=== PATIENT | female | born 1995 | race Caucasian/White ===

== ENCOUNTER 2016-06-23 08:06 | Emergency (ER) | payer OTHER ==
[~2016-06-23] VITALS: Ht 154.9 cm; Wt 62.0 kg
[2016-06-23 08:14] VITALS: BP 109/72; PULSE 73; RESP 16; TEMP 98.7; O2SAT 97
[2016-06-23 08:29] LABS: BLOOD, URINE TRACE (NEG); GLUCOSE,URINE NEG (NEG); KETONE, URINE NEG (NEG); NITRITE,URINE NEG (NEG)
[2016-06-23 08:33] LABS: METHOD OF COLLECTION CLEAN CATCH; URINE COLOR STRAW (YELLW/STRAW)
[2016-06-23 08:34] LABS: BACTERIA, URINE FEW /hpf; COMMENT (UR) CULTURE INDICATED; CULTURE IF INDICATED CULTURE INDICATED; RBC, URINE 0-3 /hpf (0-3); SQUAMOUS EPITHELIAL CELL URINE > 8 /hpf (0-5)
[2016-06-23 08:35] LABS: COMMENT2 (UR) MUCOUS PRESENT; TRANSITIONAL EPI CELLS, URINE 0-5 /hpf
[2016-06-23] MEDS ORDERED: MACR100C2 PO (08:43)
--- NOTE | 2016-06-23 08:43 | PD ---
HPI Chief Complaint: Complaint Time Seen by Provider: 08:23 Travel History International Travel<30 days: No Contact w/Intl Traveler<30days: No Traveled to known affect area: No History of Present Illness HPI So well 21-year-old young woman who presents to the emergency department complaining of dysuria and urgency with cloudy urine ongoing for several days. She's been taking cranberry pills which haven't really seem to be helping. She is a little bit a mild pelvic cramping. No history of urinary tract infections. No fevers chills, nausea vomiting, vaginal discharge or vaginal bleeding. She has an IUD and her menstrual periods are pretty irregular. She is sexually active with one male partner. History Past Medical History Medical History: Denies Significant Hx Tetanus Vaccination: < 5 Years Influenza Vaccination: No LMP: UNKNOWN Past Surgical History Surgical History: No Previous Surgery Social History Alcohol Use: No Tobacco Use: No Allergies-Medications (Allergen,Severity, Reaction): Coded Allergies: No Known Allergies (Unverified , 06/23/16) Review of Systems Except as stated in HPI: all other systems reviewed are Neg Physical Exam Narrative GENERAL: Well-appearing 21 year-old woman, no acute distress. SKIN: Warm and dry. CARDIOVASCULAR: Regular rate and rhythm. No murmur appreciated. RESPIRATORY: No accessory muscle use. Clear to auscultation. Breath sounds equal bilaterally. GASTROINTESTINAL: Abdomen flat and soft. Minimal suprapubic tenderness. MUSCULOSKELETAL: No obvious deformities. No clubbing. No cyanosis. No edema. NEUROLOGICAL: Awake and alert. No obvious cranial nerve deficits. Motor grossly within normal limits. Normal speech. PSYCHIATRIC: Appropriate mood and affect; insight and judgment normal. Data Data Last Documented VS Vital Signs Date Time Temp Pulse Resp B/P Pulse Ox O2 Delivery O2 Flow Rate FiO2 06/23/16 08:14 98.7 73 16 109/72 97 Orders Urinalysis - C+S If Indicated (06/23/16 08:11) Ed Urine Pregnancytest Poc (06/23/16 08:11) Urine Culture (06/23/16 08:15) Labs Laboratory Tests Test 06/23/16 08:15 Urine Collection Type CLEAN CATCH Urine Color STRAW Urine Turbidity SLIGHT Urine pH 6.0 Urine Specific [place] 1.010 Urine Protein NEG mg/dL Urine Glucose (UA) NEG mg/dL Urine Ketones NEG mg/dL Urine Occult Blood TRACE Urine Nitrite NEG Urine Bilirubin NEG Urine Leukocyte Esterase MOD Urine RBC 0-3 /hpf Urine WBC 20-24 /hpf Urine WBC Clumps FEW Urine Squamous Epithelial > 8 /hpf Cells Urine Transitional Epithelial 0-5 /hpf Cells Urine Amorphous Sediment SMALL Urine Bacteria FEW /hpf Microscopic Urinalysis Comment CULTURE INDICATED Urine Collection Time 0815 [facility] Medical Decision Making Medical Screen Exam Complete: Yes Emergency Medical Condition: Yes Interpretation(s) UA: Pyuria Differential Diagnosis UTI, cervicitis, other Narrative Course Medical decision making 21 year-old woman presents emergency Department with dysuria, cloudy urine, with pyuria suggestive of UTI. Recommend treatment, follow-up culture. Diagnosis Primary Impression: Acute cystitis without hematuria Additional Instructions: Take Macrobid as prescribed. Follow up with her primary doctor in the next 2-4 days if not improving. Return to the emergency department for any worsening abdominal pain, vomiting, or any other new or worsening symptoms. Med/Other Pt SpecificInfo: Prescription(s) given Scripts Nitrofurantoin Monohydrate Macrocrystals (Macrobid)100 Mg [id number] Mg PO BID 5 Days Prov:Charlie Garber MD 06/23/16 Disposition: 01 DISCHARGE HOME Condition: Stable Charlie Garber MD Jun 23, 2016 08:43
== END 2016-06-23 08:57 | disposition home or self-care (01) ==
LOC: PHED 08:06
DX: N30.00 Acute cystitis without hematuria (principal)
CPT/HCPCS: 81001; 84703; 87086; 99283

== ENCOUNTER 2016-08-25 08:43 | Emergency (ER) | payer OTHER ==
[~2016-08-25] VITALS: Ht 154.9 cm; Wt 61.7 kg
[~2016-08-25 08:43] MED LIST: MACR100C2 PO
[2016-08-25 08:49] VITALS: BP 123/64; PULSE 79; RESP 16; TEMP 98.9; O2SAT 98
[2016-08-25] MEDS ORDERED: AMOX500C PO (09:29)
--- NOTE | 2016-08-25 09:29 | PD ---
HPI Chief Complaint: ENT Complaint Time Seen by Provider: 08:59 Travel History International Travel<30 days: No Contact w/Intl Traveler<30days: No Traveled to known affect area: No History of Present Illness HPI This 19-year-old female presents emergency department for evaluation of bilateral ear pain left greater than right. Patient states she's been swimming recently. States she has a history of recurrent ear infections she does use Q- tips to clean her ears. Patient is concerned because she is flying tomorrow. She denies any fever or any sore throat chest pain extremity pain rash and abdominal pain. Feels like her ears are soft. PFSH Past Medical History Medical History: Denies Significant Hx Diminished Hearing: No Tetanus Vaccination: Unknown ?: Not LMP: 3 WEEKS AGO Past Surgical History Tonsillectomy: Yes Social History Alcohol Use: No Tobacco Use: No Substance Use: No Allergies-Medications (Allergen,Severity, Reaction): Coded Allergies: No Known Allergies (Unverified , 08/25/16) Reported Meds & Prescriptions Reported Meds & Active Scripts Active Amoxicillin 500 Mg Cap 500 Mg PO BID 7 Days Review of Systems Except as stated in HPI: all other systems reviewed are Neg Physical Exam Narrative GENERAL: Well-nourished, well-developed patient who is in no apparent distress. SKIN: Warm and dry. HEAD: Normocephalic. EYES: No scleral icterus. No injection or drainage. ENT: Right TM is clear, left ear canal is occluded by wax, after irrigation and removal of impaction TM was partially visualized and does show some bulging without erythema. No mastoid tenderness, oropharynx is clear and moist. NECK: Supple, trachea midline. No JVD or lymphadenopathy. CARDIOVASCULAR: Regular rate and rhythm without murmurs, gallops, or rubs. RESPIRATORY: Breath sounds equal bilaterally. No accessory muscle use. GASTROINTESTINAL: Abdomen soft, non-tender, nondistended. MUSCULOSKELETAL: No cyanosis, or edema. BACK: Nontender without obvious deformity. No CVA tenderness. Data Data Last Documented VS Vital Signs Date Time Temp Pulse Resp B/P Pulse Ox O2 Delivery O2 Flow Rate FiO2 08/25/16 08:49 98.9 79 16 123/64 98 MDM Medical Decision Making Medical Screen Exam Complete: Yes Emergency Medical Condition: Yes Differential Diagnosis Cerumen impaction, otitis media, otitis externa. Narrative Course Patient roomed in the emergency department, her cerumen impaction was debrided by myself. TM which is not erythematous. Recommend taking Sudafed and amoxicillin and chewing gum on the airplane. She otherwise appears well. Discussed that there is some risk for flying for ruptured TM but she is fairly young and should be able to tolerate. She stable for discharge. Procedures Procedure Narrative RIGHT EAR CERUMEN DISIMPACTION: After discussion of the risk of TM perforation, patient was placed and supine position, using an ear curet the best majority of the impaction was removed, patient was irrigated with normal saline with an 18- gauge Angiocath. There is some cerumen remains impacted up against the TM and was left alone for now, the remainder of the TM is slightly bulging but not erythematous. Diagnosis Primary Impression: Otitis media Qualified Code: H66.92 - Left otitis media, unspecified chronicity, unspecified otitis media type Med/Other Pt SpecificInfo: Prescription(s) given Scripts Amoxicillin 500 Mg [id number] Mg PO BID 7 Days Ref 0 Prov:Sky Cheng MD 08/25/16 Disposition: 01 DISCHARGE HOME Condition: Stable Sky Cheng MD Aug 25, 2016 09:29
== END 2016-08-25 09:35 | disposition home or self-care (01) ==
LOC: PHEFT 08:43
DX: H61.21 Impacted cerumen, right ear (principal); H66.92 Otitis media, unspecified, left ear
CPT/HCPCS: 69210